=== PATIENT | female | born 1990 | race Caucasian/White ===

== ENCOUNTER 2016-09-26 10:36 | Outpatient (CLI) | payer OTHER ==
[2015-11-23 10:36] VITALS: BP 112/64
--- NOTE | 2016-09-26 18:26 | Diagnostic Imaging Report ---
[facility] [address] [facility].[address] [address] Report Submission Date: Sep 26, 2016 4:18:22 PM CTO Patient Study Name: TORY DELUCA Date: Sep 26, 2016 10:47:44 AM CTO Modality Type: CR Gender: F Description: UPPER EXTREMITY : 88 Institution: [facility] Physician: JOLEEN FINK Left hand 3 views Clinical history: Trauma No visible fracture, dislocation or bone destruction. Impression: Normal left hand. Electronically signed on Sep 26, 2016 4:18:22 PM CTO by: Ambrocio ZAMORANO
== END 2016-09-26 10:37 ==
LOC: RAD 10:36
PROVIDERS: ATTEND Physician Assistant
DX: M79.645 Pain in left finger(s) (principal)
CPT/HCPCS: 73130

== ENCOUNTER 2016-12-12 13:16 | Outpatient (CLI) | payer OTHER ==
[2015-11-23 10:36] VITALS: BP 112/64
--- NOTE | 2016-12-12 15:04 | Diagnostic Imaging Report ---
LUIGI ALVES [facility] [address] [facility] [address] [address] Report Submission Date: Dec 12, 2016 2:55:43 PM CDT Patient Study Name: TORY DELUCA Date: Dec 12, 2016 1:26:49 PM CDT Modality Type: CR Gender: F Description: LOWER EXTREMITY : 88 Institution: [facility] Physician: LUIGI ALVES Right ankle 3 views Clinical history: Pain Technique AP lateral oblique Findings: There is no fracture or lytic change. The joint space is preserved. Impression: Negative right ankle Electronically signed on Dec 12, 2016 2:55:43 PM CDT by: Monty ZAMORANO
== END 2016-12-12 13:17 ==
LOC: RAD 13:16
PROVIDERS: ATTEND Family Medicine
DX: M25.571 Pain in right ankle and joints of right foot (principal)
CPT/HCPCS: 73610

== ENCOUNTER 2017-05-15 10:53 | Outpatient (CLI) | payer OTHER ==
[2015-11-23 10:36] VITALS: BP 112/64
--- NOTE | 2017-05-15 14:47 | Diagnostic Imaging Report ---
LUIGI ALVES [facility] [address] [facility].[address] [address] Report Submission Date: May 15, 2017 12:09:52 PM CDT Patient Study Name: TORY DELUCA Date: May 15, 2017 11:27:36 AM CDT Modality Type: US Gender: F Description: UNILAT LTD STDY EXT VEINS : 88 Institution: [facility] Physician: LUIGI ALVES Examination: Ultrasound vein History: Calf discomfort Findings: Sonographic evaluation of the right lower extremity venous system from the groin to the popliteal fossa inclusive. Normal compressibility. No luminal filling defect. Normal waveforms and response to augmentation. No popliteal region fluid collection. Impression: No evidence for deep venous thrombosis. Electronically signed on May 15, 2017 12:09:52 PM CDT by: Wilmer ZAMORANO
--- NOTE | 2017-05-15 15:14 | Diagnostic Imaging Report ---
LUIGI ALVES [facility] [address] [facility].[address] [address] Report Submission Date: May 15, 2017 12:10:37 PM CDT Patient Study Name: TORY DELUCA Date: May 15, 2017 11:08:52 AM CDT Modality Type: CR Gender: F Description: LOWER EXTREMITY : 88 Institution: [facility] Physician: LUIGI ALVES Examination: Plain film femur History: Discomfort Comparison exams: None provided Findings: 4 views of the femur demonstrate normal cortical margins. No fracture no dislocation. No soft tissue abnormality. Impression: No acute osseous abnormality. Electronically signed on May 15, 2017 12:10:37 PM CDT by: Wilmer ZAMORANO
== END 2017-05-15 10:54 ==
LOC: RAD 10:53
PROVIDERS: ATTEND Family Medicine
DX: M79.604 Pain in right leg (principal)
CPT/HCPCS: 73552; 93971

== ENCOUNTER 2018-06-11 08:43 | Outpatient (CLI) | payer OTHER ==
[2015-11-23 10:36] VITALS: BP 112/64
== END 2018-06-11 08:44 ==
LOC: LAB 08:43
PROVIDERS: ATTEND Family Medicine
DX: F41.9 Anxiety disorder, unspecified (principal)
CPT/HCPCS: 36415; 84443